=== PATIENT | female | born 1965 ===

== ENCOUNTER 2017-02-02 20:52 | Emergency (ER) | payer SELFPAY ==
--- NOTE | 2017-02-02 22:00 | C.PDOC ---
History Of Present Illness Patient is a 51 year old female who presents to the ER with a complaint of a headache, insomnia and intermittent puritic rash since her roommate bought new dogs. Patient states the dogs have fleas and bark all night which keep her up all night; she also notes she is allergic to dogs. Patient reports she has been taking tylenol with some relief. Denies dizziness, weakness, SOB or rash at this time. Time Seen by Provider: 02/02/17 21:23 Chief Complaint (Nursing): Headache History Per: Patient History/Exam Limitations: no limitations Onset/Duration Of Symptoms: Days, Intermittent Episodes Current Symptoms Are (Timing): Still Present Preceeding Symptoms: None Recent travel outside of the [place]: No Past Medical History Reviewed: Historical Data, Nursing Documentation, Vital Signs Vital Signs: Last Vital Signs Temp 97.8 F 02/02/17 22:08 Pulse 98 H 02/02/17 22:08 Resp 18 02/02/17 22:08 BP 171/88 H 02/02/17 22:08 Pulse Ox 100 02/03/17 00:34 - Medical History PMH: HTN Surgical History: No Surg Hx Family History: States: Unknown Family Hx - Social History Hx Alcohol Use: No Hx Substance Use: No Review Of Systems Respiratory: Negative for: Shortness of Breath Skin: Negative for: Rash Neurological: Positive for: Headache. Negative for: Weakness, Dizziness Physical Exam - Physical Exam Appears: Non-toxic Skin: Normal Color, Warm, Dry Head: Atraumatic, Normacephalic Eye(s): bilateral: Normal Inspection, PERRL, EOMI Ear(s): Bilateral: Normal Oral Mucosa: Moist Tongue: Normal Appearing, No Swelling Lips: Normal Appearing, No Swelling Throat: Normal, No Erythema, No Exudate Neck: Normal, Supple Chest: Symmetrical, No Tenderness Cardiovascular: Rhythm Regular, No Murmur Respiratory: Normal Breath Sounds, No Wheezing Gastrointestinal/Abdominal: Soft, No Tenderness Neurological/Psych: Oriented x3, Normal Speech, Normal Cognition ED Course And Treatment O2 Sat by Pulse Oximetry: 100 (Room air) Pulse Ox Interpretation: Normal Progress Note: Patient has a Hx of HTN which was elevated in the ER, she reported she has not taken her medication in the past 2 days, pt states she will take her regular dose of enalapril. 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 Disposition - Disposition Referrals: [facility] at [facility] [Outside] Disposition: HOME/ ROUTINE Disposition Time: 21:58 Condition: STABLE Additional Instructions: Please follow up with PMD Continue tylenol extea strength Continue BP meds May take benadryl as needed Return to ER if worse Instructions: Acute Headache (ED), Insomnia (ED) - Clinical Impression Clinical Impression: Headache, Insomnia due to stress, Allergy to dogs - Scribe Statement The provider has reviewed the documentation as recorded by the Scribhalina Cervantes All medical record entries made by the Dakotaibhalina were at my direction and personally dictated by me. I have reviewed the chart and agree that the record accurately reflects my personal performance of the history, physical exam, medical decision making, and the department course for this patient. I have also personally directed, reviewed, and agree with the discharge instructions and disposition.
[2017-02-02 22:09] VITALS: BP 171/88; PULSE 98; RESP 18; TEMP 97.8
[2017-02-03 00:29] VITALS: O2SAT 100
== END 2017-02-02 22:10 | disposition home or self-care (01) ==
LOC: C.ER 20:52
DX: R51 Headache (principal); F51.02 Adjustment insomnia; J30.81 Allergic rhinitis due to animal (cat) (dog) hair and dander; I10 Essential (primary) hypertension